=== PATIENT | female | born 1990 | race Caucasian/White ===

== ENCOUNTER → 2017-03-08 | Outpatient (CLI) | payer BC | LOC: MW.CHOBGYN 11:17 | PROVIDERS: ATTEND Advanced Practice Midwife | DX: Z01.419 Encounter for gynecological examination (general) (routine) without abnormal findings (principal) | CPT/HCPCS: 36415; 84439; 84443; G0145 ==

== ENCOUNTER → 2017-03-15 | Outpatient (CLI) | payer BC ==
--- NOTE | 2017-03-16 08:47 | US ---
EXAMINATION: Thyroid ultrasound HISTORY: Goiter COMPARISON: None TECHNIQUE: Grayscale and color Doppler images obtained of the thyroid gland FINDINGS: The right thyroid lobe measures 3.8 x 1.2 x 1.2 cm and the left thyroid lobe measures 4.3 x 1.3 x 1.2 cm. The isthmus measures 2 mm. There are several small isoechoic to hypoechoic nodules n oted bilaterally measuring up to 6 mm. Several appear to have echogenic foci with, tail artifact con sistent with colloid nodules. No overtly suspicious nodule identified. Normal color Doppler flow beatriz aterally. IMPRESSION: 1. Several tiny nodules noted bilaterally. Follow-up in one year may be beneficial.
== END ==
LOC: MW.US 13:57
PROVIDERS: ATTEND Advanced Practice Midwife
DX: E01.0 Iodine-deficiency related diffuse (endemic) goiter (principal)
CPT/HCPCS: 76536-26; 76536-50

== ENCOUNTER 2019-01-05 05:43 | Emergency (ER) | payer BC ==
[2019-01-05] MEDS ORDERED: Ondansetron 4 MG/2 ML SDV ONE ×2 (06:00→06:01)
[2019-01-05] MEDS ORDERED: Sodium Chloride 0.9% 1,000 ML IV ONE (06:00)
[2019-01-05] MEDS ORDERED: Sodium Chloride 0.9% 10 ML Syringe FLUSH PRN (06:00)
[2019-01-05] MEDS ORDERED: Ondansetron 4 MG/2 ML SDV IVPUSH ONE (06:00)
[2019-01-05] MEDS ORDERED: Sodium Chloride 0.9% 2.5 ML Syringe FLUSH PRN (06:00)
[2019-01-05] MEDS ORDERED: Famotidine 20 MG/2 ML SDV IVPUSH ONE (06:00)
[2019-01-05] MEDS ORDERED: Famotidine 20 MG/2 ML SDV ONE (06:02)
--- NOTE | 2019-01-05 06:07 | EDM.PDOC ---
<Yasemin Correia - Last Filed: 01/05/19 06:37> ED HPI GENERAL MEDICAL PROBLEM - General Chief Complaint: Gastrointestinal Problem Stated Complaint: VOMITING, 7 WEEKS PREG Time Seen by Provider: 01/05/19 05:48 - History of Present Illness INITIAL COMMENTS - FREE TEXT/NARRATIVE: HISTORY AND PHYSICAL: History of present illness: The patient is a 28-year-old female who is a 6 para 2031, with a history of 2 live births 2 voluntary interruptions of pregnancies and one spontaneous miscarriage with a last menstrual period of November 16, and an estimated gestational age of 7 weeks one day, who is scheduled to start care with Diana Bullard our nurse 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 The patient tells me she has a history of IBS with constipation and she did not eat any new foods or have any exotic travel and she attributed her symptoms for the last 1 week due to the but she was able to take sips of fluids and small bites of food in between the nausea and vomiting. Intractable vomiting started over the last 24 hours, and the diarrhea in the last 12 hours with decreased urine output. She has not had documented fever but she has felt very sweaty and clammy. She has no burning and pain with urination and no flank pain. The patient says she has no upper GI history and no abdominal surgical history. The patient says that she had been taking Zofran over the last week but it made her constipated and the diarrhea is new for her. Stool is not black or bloody. The patient also complains of diffuse abdominal cramping that she says started with the diarrhea but she has had no vaginal bleeding. According to the patient she has not started her care and has not had an ultrasound to confirm the but she is sure of her last menstrual period and she has very regular periods. Please note for the patient's IBS she has not currently seeing a tube skiver nor is she taking any medications currently for that process Review of systems: As per history of present illness and below otherwise all systems reviewed and negative. Past medical history: As per history of present illness and as reviewed below otherwise noncontributory. Surgical history: As per history of present illness and as reviewed below otherwise noncontributory. Social history: No reported history of drug or alcohol abuse. Family history: As per history of present illness and as reviewed below otherwise noncontributory. Physical exam: General: Well-developed well-nourished thin female who is having dry heaves in the ED. Vital signs are noted by me. HEENT: Atraumatic, normocephalic, negative for conjunctival pallor or scleral icterus, mucous membranes dry, throat clear, neck supple, nontender, trachea midline. Lungs: Clear to auscultation, breath sounds equal bilaterally, chest nontender. Heart: S1S2, regular rate and rhythm no overt murmurs Abdomen: Soft, nondistended, nontender. No sounds are hypoactive on my evaluation and there is no rebound or guarding on palpation. Negative for masses or hepatosplenomegaly. Negative for costovertebral tenderness. Pelvis: Stable nontender. Genitourinary: Deferred. Rectal: Deferred. Extremities: Atraumatic, negative for cords or calf pain. Neurovascular unremarkable. Full range of motion without defects or deficits Neuro: Awake, alert, oriented. Cranial nerves II through XII unremarkable. Cerebellum unremarkable. Motor and sensory unremarkable throughout. Exam nonfocal. Diagnostics: CBC CMP lipase stool for culture if patient produces a sample, serum quantitative hCG, pelvic ultrasound Therapeutics: IV fluids Zofran Pepcid GI cocktail 0700: Case is endorsed to Dr. Balderas to follow-up testing results and disposition the patient. Impression: Hyperemesis gravidarum with gastroenteritis/diarrhea Definitive disposition and diagnosis as appropriate pending reevaluation and review of above. Abdomen Pain Score (Numeric/FACES): 5 - Related Data Allergies Allergy/AdvReac Type Severity Reaction Status Date / Time No Known Allergies Allergy Verified 01/05/19 05:54 Home Meds: Home Meds Vit No.130/Iron/FA [ Vitamins] 1 tab PO DAILY 10/24/14 [History ] Ondansetron HCl [Zofran] 4 mg PO Q4HR #12 tablet 01/05/19 [Rx] Ondansetron [Zofran] 4 mg PO ASDIRECTED 01/05/19 [History] Past Medical History - Past Health History Medical/Surgical History: Denies Medical/Surgical History Other Respiratory History: Current sinus infection and on Zithromax Other Musculoskeletal History: ankle fracture - Past Surgical History Other Musculoskeletal Surgeries/Procedures:: torn meniscus on knee ED ROS GENERAL - Review of Systems Review Of Systems: ROS reveals no pertinent complaints other than HPI. ED EXAM, GENERAL - Physical Exam Exam: See Below (See dictation) Course - Vital Signs Last Recorded V/S: Last Vital Signs Temp 97 F 01/05/19 05:55 Pulse 78 01/05/19 09:17 Resp 14 01/05/19 09:17 BP 120/59 L 01/05/19 09:17 Pulse Ox 97 01/05/19 09:17 - Orders/Labs/Meds Orders: Active Orders 24 hr Category Date Time Status CULTURE URINE [RM] Stat Lab 01/05/19 07:34 Received Saline Lock Insert [OM.PC] Stat Oth 01/05/19 05:59 Ordered Labs: Laboratory Tests 01/05/19 01/05/19 01/05/19 Range/Units 06:08 06:08 06:08 WBC 14.14 H (4.0-11.0) K/uL RBC 4.34 (4.30-5.90) M/uL Hgb 14.0 (12.0-16.0) g/dL Hct 39.5 (36.0-46.0) % MCV 91.0 (80.0-98.0) fL MCH 32.3 H (27.0-32.0) pg MCHC 35.4 (31.0-37.0) g/dL RDW Std Deviation 41.9 (28.0-62.0) fl RDW Coeff of Avelina 12 (11.0-15.0) % Plt Count 312 (150-400) K/uL MPV 9.00 (7.40-12.00) fL Neut % (Auto) 83.8 H (48.0-80.0) % Lymph % (Auto) 10.0 L (16.0-40.0) % [place] % (Auto) 5.7 (0.0-15.0) % Eos % (Auto) 0.4 (0.0-7.0) % Baso % (Auto) 0.1 (0.0-1.5) % Neut # (Auto) 11.9 H (1.4-5.7) K/uL Lymph # (Auto) 1.4 (0.6-2.4) K/uL [place] # (Auto) 0.8 (0.0-0.8) K/uL Eos # (Auto) 0.1 (0.0-0.7) K/uL Baso # (Auto) 0.0 (0.0-0.1) K/uL Nucleated RBC % 0.0 /100WBC Nucleated RBCs # 0 K/uL Sodium 138 (136-145) mmol/L Potassium 3.2 L (3.5-5.1) mmol/L Chloride 102 (98-107) mmol/L Carbon Dioxide 21.4 (21.0-32.0) mmol/L BUN 9 (7.0-18.0) mg/dL Creatinine 0.8 (0.6-1.0) mg/dL Est Cr Clr Drug Dosing 98.88 mL/min Estimated GFR (MDRD) > 60.0 ml/min Glucose 139 H (74-106) mg/dL Calcium 10.0 (8.5-10.1) mg/dL Total Bilirubin 0.3 (0.2-1.0) mg/dL AST 19 (15-37) IU/L ALT 23 (14-63) IU/L Alkaline Phosphatase 44 L (46-116) U/L Total Protein 7.3 (6.4-8.2) g/dL Albumin 4.1 (3.4-5.0) g/dL Globulin 3.2 (2.6-4.0) g/dL Albumin/Globulin Ratio 1.3 (0.9-1.6) Lipase 159 (73-393) U/L HCG, Quant 38376.0 mIU/mL Urine Color Urine Appearance Urine pH (5.0-8.0) Ur Specific Crystal (1.001-1.035) Urine Protein (NEGATIVE) mg/dL Urine Glucose (UA) (NEGATIVE) mg/dL Urine Ketones (NEGATIVE) mg/dL Urine Occult Blood (NEGATIVE) Urine Nitrite (NEGATIVE) Urine Bilirubin (NEGATIVE) Urine Urobilinogen (<2.0) EU/dL Ur Leukocyte Esterase (NEGATIVE) Urine RBC (0-2/HPF) Urine WBC (0-5/HPF) Ur Epithelial Cells (NONE-FEW) Urine Bacteria (NEGATIVE) 01/05/19 Range/Units 07:34 WBC (4.0-11.0) K/uL RBC (4.30-5.90) M/uL Hgb (12.0-16.0) g/dL Hct (36.0-46.0) % MCV (80.0-98.0) fL MCH (27.0-32.0) pg MCHC (31.0-37.0) g/dL RDW Std Deviation (28.0-62.0) fl RDW Coeff of Avelina (11.0-15.0) % Plt Count (150-400) K/uL MPV (7.40-12.00) fL Neut % (Auto) (48.0-80.0) % Lymph % (Auto) (16.0-40.0) % [place] % (Auto) (0.0-15.0) % Eos % (Auto) (0.0-7.0) % Baso % (Auto) (0.0-1.5) % Neut # (Auto) (1.4-5.7) K/uL Lymph # (Auto) (0.6-2.4) K/uL [place] # (Auto) (0.0-0.8) K/uL Eos # (Auto) (0.0-0.7) K/uL Baso # (Auto) (0.0-0.1) K/uL Nucleated RBC % /100WBC Nucleated RBCs # K/uL Sodium (136-145) mmol/L Potassium (3.5-5.1) mmol/L Chloride (98-107) mmol/L Carbon Dioxide (21.0-32.0) mmol/L BUN (7.0-18.0) mg/dL Creatinine (0.6-1.0) mg/dL Est Cr Clr Drug Dosing mL/min Estimated GFR (MDRD) ml/min Glucose (74-106) mg/dL Calcium (8.5-10.1) mg/dL Total Bilirubin (0.2-1.0) mg/dL AST (15-37) IU/L ALT (14-63) IU/L Alkaline Phosphatase (46-116) U/L Total Protein (6.4-8.2) g/dL Albumin (3.4-5.0) g/dL Globulin (2.6-4.0) g/dL Albumin/Globulin Ratio (0.9-1.6) Lipase (73-393) U/L HCG, Quant mIU/mL Urine Color YELLOW Urine Appearance CLEAR Urine pH 8.5 H (5.0-8.0) Ur Specific Crystal 1.020 (1.001-1.035) Urine Protein NEGATIVE (NEGATIVE) mg/dL Urine Glucose (UA) NEGATIVE (NEGATIVE) mg/dL Urine Ketones 15 H (NEGATIVE) mg/dL Urine Occult Blood NEGATIVE (NEGATIVE) Urine Nitrite NEGATIVE (NEGATIVE) Urine Bilirubin NEGATIVE (NEGATIVE) Urine Urobilinogen 0.2 (<2.0) EU/dL Ur Leukocyte Esterase SMALL H (NEGATIVE) Urine RBC 1-2 (0-2/HPF) Urine WBC 2-3 (0-5/HPF) Ur Epithelial Cells FEW (NONE-FEW) Urine Bacteria 1+ H (NEGATIVE) Meds: Medications Discontinued Medications Generic Name Dose Route Start Last Admin Trade Name Freq PRN Reason Stop Dose Admin Al Hydroxide/Mg Hydroxide 15 0 ml 01/05/19 06:35 01/05/19 06:42 ml/ Metoclopramide HCl 5 mg/ PO 01/05/19 06:36 1 each Lidocaine HCl 5 ml ONETIME ONE Administration Famotidine 20 mg 01/05/19 06:00 01/05/19 06:13 Pepcid IVPUSH 01/05/19 06:01 20 mg ONETIME ONE Administration Famotidine Confirm 01/05/19 06:02 01/05/19 06:15 Pepcid Administered 01/05/19 06:03 Not Given Dose 20 mg .ROUTE .STK-MED ONE Sodium Chloride 1,000 mls @ 999 mls/hr 01/05/19 06:00 01/05/19 06:13 Normal Saline IV 01/05/19 07:00 999 mls/hr STAT ONE Administration Morphine Sulfate 2 mg 01/05/19 08:33 01/05/19 08:40 Morphine IVPUSH 01/05/19 08:34 2 mg ONETIME ONE Administration Ondansetron HCl 8 mg 01/05/19 06:00 01/05/19 06:13 Zofran IVPUSH 01/05/19 06:01 8 mg ONETIME ONE Administration Ondansetron HCl Confirm 01/05/19 06:00 01/05/19 06:15 Zofran Administered 01/05/19 06:01 Not Given Dose 4 mg .ROUTE .STK-MED ONE Ondansetron HCl Confirm 01/05/19 06:01 01/05/19 06:15 Zofran Administered 01/05/19 06:02 Not Given Dose 4 mg .ROUTE .STK-MED ONE Promethazine HCl 25 mg 01/05/19 08:07 01/05/19 08:18 Phenergan IM 01/05/19 08:08 25 mg ONETIME ONE Administration Sodium Chloride 10 ml 01/05/19 06:00 01/05/19 08:20 Saline Flush FLUSH 10 ml ASDIRECTED PRN Administration Keep Vein Open Sodium Chloride 2.5 ml 01/05/19 06:00 01/05/19 08:20 Saline Flush FLUSH 2.5 ml ASDIRECTED PRN Administration Keep Vein Open Departure - Departure Disposition: Home, Self-Care 01 Condition: Good Clinical Impression: Diarrhea, Hyperemesis gravidarum, Vomiting - Discharge Information Prescriptions: Ondansetron HCl [Zofran] 4 mg PO Q4HR #12 tablet Instructions: Diarrhea, Adult, Hyperemesis Gravidarum, Nausea and Vomiting, Adult Referrals: PCP,None [Primary Care Provider] - Forms: ED Department Discharge Additional Instructions: The following information is given to patients seen in the emergency department who are being discharged to home. This information is to outline your options for follow-up care. We provide all patients seen in our emergency department with a follow-up referral. The need for follow-up, as well as the timing and circumstances, are variable depending upon the specifics of your emergency department visit. If you don't have a primary care physician on staff, we will provide you with a referral. We always advise you to contact your personal physician following an emergency department visit to inform them of the circumstance of the visit and for follow-up with them and/or the need for any referrals to a consulting specialist. The emergency department will also refer you to a specialist when appropriate. This referral assures that you have the opportunity for follow-up care with a specialist. All of these measure are taken in an effort to provide you with optimal care, which includes your follow-up. Under all circumstances we always encourage you to contact your private physician who remains a resource for coordinating your care. When calling for follow-up care, please make the office aware that this follow-up is from your recent emergency room visit. If for any reason you are refused follow-up, please contact the [facility] Emergency Department at and asked to speak to the emergency department charge nurse. Take meds as directed, follow up with your primary care physician, return to ER if symptoms worsen or change. [facility] Primary Care - Women's [facility] [address] [place] [id number] <Charlotte Balderas - Last Filed: 01/05/19 11:17> ED HPI GENERAL MEDICAL PROBLEM - History of Present Illness INITIAL COMMENTS - FREE TEXT/NARRATIVE: She was signed out to me Dr. 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 Ultrasound showed:Early single living intrauterine is identified. 1 cm crown rump length is noted corresponds 7 weeks +0 days and estimated date of confinement of 08/24/2019. No abnormal fluid collections are noted. Yolk sac is noted. Small amount of free fluid in the cul-de-sac is noted. Probable corpus luteum within the left ovary noted. Recommend follow up ultrasound as progresses. Labs were unremarkable she had a slightly low potassium and slightly elevated white count likely due to stress demargination and . She has been discharged stable instructed to take Pepcid twice a day for the next 2 weeks and follow up with OB. Departure - Departure Time of Disposition: 08:58 - Discharge Information *PRESCRIPTION DRUG MONITORING PROGRAM REVIEWED*: No *COPY OF PRESCRIPTION DRUG MONITORING REPORT IN PATIENT AMARILIS: No
[2019-01-05] MEDS ORDERED: Alum Hydrox/Mag Hydrox/Simeth 15 ML, Metoclopramide 5 MG, Lidocaine 2% 5 ML PO ONE ×3 (06:35)
[2019-01-05 06:58] LABS: CHLORIDE,CL 102 mmol/L (98-107); SODIUM,NA 138 mmol/L (136-145)
[2019-01-05] MEDS ORDERED: Promethazine 25 MG/ML SDV IM ONE (08:07)
--- NOTE | 2019-01-05 08:26 | US ---
INDICATION: Nausea vomiting, abdominal pain, early . FINDINGS: There is an early single living intrauterine identified. The average crown-rump length is 1 cm corresponds 7 weeks +0 days and estimated date of confinement of 08/24/2019. Cardiac activity is identified with a heart rate of 126 beats per minute. No abnormal fluid collections are seen. Yolk sac is noted. The right ovary is within normal limits. Small complex area within the left ovary is identified which is probably related to corpus luteum. Color Doppler blood flow to both ovaries is noted. Small amount of free fluid in the cul-de-sac is noted. IMPRESSION: Early single living intrauterine is identified. 1 cm crown rump length is noted corresponds 7 weeks +0 days and estimated date of confinement of 08/24/2019. No abnormal fluid collections are noted. Yolk sac is noted. Small amount of free fluid in the cul-de-sac is noted. Probable corpus luteum within the left ovary noted. Recommend follow up ultrasound as progresses. Dictated by Delon Pisano MD @ 01/05/2019 8:24:38 AM Dictated by: Delon Pisano MD @ 01/05/2019 08:24:44 (Electronically Signed)
[2019-01-05] MEDS ORDERED: Morphine 2 MG/ML Syringe IVPUSH ONE (08:33)
[2019-01-05 09:18] VITALS: BP 120/59
== END 2019-01-05 09:15 | disposition home or self-care (01) ==
LOC: MW.ED 05:43
DX: O21.0 Mild hyperemesis gravidarum (principal); O99.611 Diseases of the digestive system complicating pregnancy, first trimester; K52.9 Noninfective gastroenteritis and colitis, unspecified; Z79.899 Other long term (current) drug therapy; Z3A.01 Less than 8 weeks gestation of pregnancy
CPT/HCPCS: 36415; 76801; 80053; 81001; 83690; 84702; 85025; 87086; A9270; J2270; J2405; J2550; J3490; J7040; 99283

== ENCOUNTER 2019-08-11 07:46 | Inpatient (IN) | payer SELFPAY ==
[2019-08-11] MEDS ORDERED: Sodium Chloride 0.9% 10 ML Syringe FLUSH PRN (07:52)
[2019-08-11] MEDS ORDERED: Tranexamic Acid 1,000 MG in Sodium Chloride 0.9% 100 ML IV PRN (07:52)
[2019-08-11] MEDS ORDERED: Sodium Chloride 0.9% 10 ML SDV IV PRN (07:52)
[2019-08-11] MEDS ORDERED: Water For Irrigation,Sterile 1,000 ML Container IRR PRN (07:52)
[2019-08-11] MEDS ORDERED: Ondansetron 4 MG/2 ML SDV IVPUSH PRN (07:52)
[2019-08-11] MEDS ORDERED: Lidocaine 1% 50 ML MDV INJECT PRN (07:52)
[2019-08-11] MEDS ORDERED: Sodium Chloride 0.9% 2.5 ML Syringe FLUSH PRN (07:52)
[2019-08-11] MEDS ORDERED: Methylergonovine 0.2 MG/1 ML Amp IM PRN (07:52)
[2019-08-11] MEDS ORDERED: Misoprostol 200 MCG Tab PO PRN (07:52)
[2019-08-11] MEDS ORDERED: Carboprost Tromethamine 250 MCG/1 ML Amp IM PRN (07:52)
[2019-08-11] MEDS ORDERED: Nalbuphine 10 MG/1 ML Vial IVPUSH PRN (07:52)
--- NOTE | 2019-08-11 07:58 | PCM.LDHP ---
L&D History of Present Illness - General Date of Service: 08/11/19 Admit Problem/Dx: Patient Status Order with Admit Dx/Problem 08/11/19 07:52 Patient Status [ADT] Routine Admission Diagnosis/Problem Admission Diagnosis/Problem 08/11/19 07:55 29yo EDC 08/23/2019 38 2/7wks. AB+, RI, GBS neg. Active labor. Source of Information: Patient History Limitations: Reports: No Limitations - History of Present Illness Improves with: Reports: None Worsens with: Reports: None Associated Symptoms: Reports: N - Related Data Allergies/Adverse Reactions: Allergies Allergy/AdvReac Type Severity Reaction Status Date / Time No Known Allergies Allergy Verified 01/05/19 05:54 Home Medications: Home Meds Vit No.130/Iron/FA [ Vitamins] 1 tab PO DAILY 10/24/14 [History ] Ondansetron HCl [Zofran] 4 mg PO Q4HR #12 tablet 01/05/19 [Rx] Ondansetron [Zofran] 4 mg PO ASDIRECTED 01/05/19 [History] Past Medical History - Past Health History Medical/Surgical History: Denies Medical/Surgical History HEENT History: Reports: None Cardiovascular History: Reports: None Respiratory History: Reports: None Other Respiratory History: Current sinus infection and on Zithromax Gastrointestinal History: Reports: None Genitourinary History: Reports: None BASE PLY HAND History: Reports: , Spontaneous Other Musculoskeletal History: ankle fracture Neurological History: Reports: None Psychiatric History: Reports: Anxiety, Depression Endocrine/Metabolic History: Reports: None Hematologic History: Reports: None Dermatologic History: Reports: None - Infectious Disease History Infectious Disease History: Reports: None - Past Surgical History Other Musculoskeletal Surgeries/Procedures:: torn meniscus on knee Social & Family History - Family History Family Medical History: Noncontributory - Caffeine Use Caffeine Use: Reports: None H&P Review of Systems - Review of Systems: Review Of Systems: See Below General: Reports: No Symptoms HEENT: Reports: No Symptoms Pulmonary: Reports: No Symptoms Cardiovascular: Reports: No Symptoms Gastrointestinal: Reports: No Symptoms Genitourinary: Reports: No Symptoms Musculoskeletal: Reports: No Symptoms Skin: Reports: No Symptoms Psychiatric: Reports: No Symptoms Neurological: Reports: No Symptoms Hematologic/Lymphatic: Reports: No Symptoms Immunologic: Reports: No Symptoms L&D Exam - Exam Exam: See Below - OB Specific Contraction Intensity: Strong Movement: Active Heart Tones: Present Heart Tones per Min: 135 Heart Rate (FHR) Variability: Moderate (6-25 bmp) Presentation: Vertex - Diallo Score Diallo Score Cervix Position: Anterior Diallo Score Consistency: Soft Diallo Score Effacement: >80% Diallo Score Dilation: > 5 cm Diallo Score Infant's Station: -1 ,0 Diallo Score Total: 12 - Exam General: Alert, Oriented, Cooperative HEENT: Hearing Intact Lungs: Clear to Auscultation, Normal Respiratory Effort Cardiovascular: Regular Rate, Regular Rhythm, Normal S1, Normal S2 GI/Abdominal Exam: Soft, Non-Tender Rectal Exam: Deferred Genitourinary: Normal external exam, Normal speculum exam, Cervical dilitation Back Exam: Normal Inspection, Full Range of Motion Extremities: Normal Inspection, Normal Range of Motion, Non-Tender, No Pedal Edema Skin: Warm, Dry, Intact Neurological: Cranial Nerves Intact, Strength Equal Bilateral, Normal Gait, Normal Speech, Normal Tone, Sensation Intact Psychiatric: Alert, Normal Affect, Normal Mood - Problem List (1) Supervision of normal IUP (intrauterine ) in multigravida SNOMED Code(s): 799765353, 546274615, 224149737 ICD Code: Z34.80 - ENCOUNTER FOR SUPRVSN OF NORMAL , UNSP TRIMESTER Status: Acute Priority: High Current Visit: Yes Qualifiers: Trimester: third trimester Qualified Code(s): Z34.83 - Encounter for supervision of other normal , third trimester Problem List Initiated/Reviewed/Updated: Yes Orders Last 24hrs: Active Orders 24 hr Category Date Time Status Patient Status [ADT] Routine ADT 08/11/19 07:52 Active Heart Tones [RC] CONTINUOUS Care 08/11/19 07:52 Active Non Stress Test [RC] PER UNIT ROUTINE Care 08/11/19 07:52 Active May Shower [RC] ASDIRECTED Care 08/11/19 07:52 Active Notify Provider [RC] PRN Care 08/11/19 07:52 Active Peripheral IV Care [RC] . DIRECTED Care 08/11/19 07:52 Active Up ad Gabrielle [RC] ASDIRECTED Care 08/11/19 07:52 Active Vaginal Exam [RC] PRN Care 08/11/19 07:52 Active Vital Signs [RC] PER UNIT ROUTINE Care 08/11/19 07:52 Active CBC W/O DIFF,HEMOGRAM [HEME] Routine Lab 08/11/19 07:52 Ordered TYPE AND SCREEN [BBK] Routine Lab 08/11/19 07:52 Ordered Carboprost Tromethamine [Hemabate DS] Med 08/11/19 07:52 Ordered 250 mcg IM ASDIRECTED PRN Lactated Ringers @ 150 MLS/HR(1000ml) Med 08/11/19 08:00 Ordered Lactated Ringers [Ringers, Lactated] 1,000 ml IV ASDIRECTED Lidocaine 1% [Xylocaine 1%] Med 08/11/19 07:52 Ordered 50 ml INJECT ONETIME PRN Methylergonovine [Methergine] Med 08/11/19 07:52 Ordered 0.2 mg IM ASDIRECTED PRN Nalbuphine [Nubain] Med 08/11/19 07:52 Ordered 10 mg IVPUSH Q1H PRN Ondansetron [Zofran] Med 08/11/19 07:52 Ordered 4 mg IVPUSH Q6H PRN Oxytocin/0.9 % Sodium Chloride [Oxytocin 30 Unit/500 ML Med 08/11/19 08:00 Ordered -NS] 30 unit in 500 ml IV TITRATE Sodium Chloride 0.9% [Normal Saline] Med 08/11/19 07:52 Ordered 10 ml IV ASDIRECTED PRN Sodium Chloride 0.9% [Saline Flush] Med 08/11/19 07:52 Ordered 10 ml FLUSH ASDIRECTED PRN Sodium Chloride 0.9% [Saline Flush] Med 08/11/19 07:52 Ordered 2.5 ml FLUSH ASDIRECTED PRN Tranexamic Acid [Cyklokapron] 1,000 mg Med 08/11/19 07:52 Ordered Sodium Chloride 0.9% [Normal Saline] 100 ml IV ONETIME Water For Irrigation,Sterile [Sterile Water for Med 08/11/19 07:52 Ordered Irrigation] 1,000 ml IRR ASDIRECTED PRN miSOPROStol [Cytotec] Med 08/11/19 07:52 Ordered 200 mcg PO ONETIME PRN Scalp Electrode [WOMSER] Per Unit Routine Oth 08/11/19 07:52 Ordered Peripheral IV Insertion Adult [OM.PC] Routine Oth 08/11/19 07:52 Ordered Resuscitation Status Routine Resus Stat 08/11/19 07:52 Ordered Medication Orders Carboprost Tromethamine (Hemabate Ds) 250 mcg IM ASDIRECTED PRN PRN Reason: Post Hemorrhage Lactated Ringer's (Ringers, Lactated) 1,000 mls @ 150 mls/hr IV ASDIRECTED SONAL Oxytocin/Sodium Chloride (Oxytocin 30 Unit/500 Ml-Ns) 30 unit in 500 mls @ 999 mls/hr IV TITRATE SONAL Tranexamic Acid 1,000 mg/ (Sodium Chloride) 110 mls @ 660 mls/hr IV ONETIME PRN PRN Reason: Bleeding Lidocaine HCl (Xylocaine 1%) 50 ml INJECT ONETIME PRN PRN Reason: Laceration repair Methylergonovine Maleate (Methergine) 0.2 mg IM ASDIRECTED PRN PRN Reason: Post Hemorrhage Misoprostol (Cytotec) 200 mcg PO ONETIME PRN PRN Reason: Post Hemorrhage Nalbuphine HCl (Nubain) 10 mg IVPUSH Q1H PRN PRN Reason: Pain (severe 7-10) Ondansetron HCl (Zofran) 4 mg IVPUSH Q6H PRN PRN Reason: Nausea/Vomiting Sodium Chloride (Saline Flush) 10 ml FLUSH ASDIRECTED PRN PRN Reason: Keep Vein Open Sodium Chloride (Saline Flush) 2.5 ml FLUSH ASDIRECTED PRN PRN Reason: Keep Vein Open Sodium Chloride (Normal Saline) 10 ml IV ASDIRECTED PRN PRN Reason: IV Use Sterile Water (Sterile Water For Irrigation) 1,000 ml IRR ASDIRECTED PRN PRN Reason: delivery Assessment/Plan Comment:: Labor A: 29yo EDC 08/23/2019 38 2/7wks. AB+, RI, GBS neg. Active labor. P: Admit, epidural now, anticipate Dr Liu updated
[2019-08-11] MEDS ORDERED: Oxytocin/0.9 % Sodium Chloride 30 UNIT/500 ML BAG IV SCH (08:00)
[2019-08-11] MEDS: Lactated Ringers 1,000 ML IV SCH ×2 (08:10→09:45)
[2019-08-11] MEDS ORDERED: fentaNYL 100 MCG/2 ML SDV ONE (08:35)
--- NOTE | 2019-08-11 08:55 | PCM.PREANE ---
Preanesthetic Assessment - Anesthesia/Transfusion/Family Hx Anesthesia History: Prior Anesthesia Without Reaction Other Type of Anesthesia Reaction Comment: Spinal IYER with blood patch with last delivery Family History of Anesthesia Reaction: No Transfusion History: No Prior Transfusion(s) - Review of Systems General: No Symptoms Pulmonary: No Symptoms Cardiovascular: No Symptoms Gastrointestinal: No Symptoms Neurological: No Symptoms Other: Reports: None - Physical Assessment Height: 5 ft 6 in Weight: 75.75 kg ASA Class: 2 Mental Status: Alert & Oriented x3 Airway Class: Mallampati = 2 Dentition: Reports: Normal Dentition Thyro-Mental Finger Breadths: 3 Mouth Opening Finger Breadths: 3 ROM/Head Extension: Full Lungs: Clear to Auscultation, Normal Respiratory Effort Cardiovascular: Regular Rate, Regular Rhythm - Lab Values: Laboratory Last Values WBC 10.69 K/uL (4.0-11.0) 08/11/19 08:13 RBC 3.85 M/uL (4.30-5.90) L 08/11/19 08:13 Hgb 11.2 g/dL (12.0-16.0) L 08/11/19 08:13 Hct 34.2 % (36.0-46.0) L 08/11/19 08:13 MCV 88.8 fL (80.0-98.0) 08/11/19 08:13 MCH 29.1 pg (27.0-32.0) 08/11/19 08:13 MCHC 32.7 g/dL (31.0-37.0) 08/11/19 08:13 RDW Std Deviation 40.0 fl (28.0-62.0) 08/11/19 08:13 RDW Coeff of Avelina 13 % (11.0-15.0) 08/11/19 08:13 Plt Count 296 K/uL (150-400) 08/11/19 08:13 MPV 9.60 fL (7.40-12.00) 08/11/19 08:13 Nucleated RBC % 0.0 /100WBC 08/11/19 08:13 Nucleated RBCs # 0 K/uL 08/11/19 08:13 - Allergies Allergies/Adverse Reactions: Allergies Allergy/AdvReac Type Severity Reaction Status Date / Time No Known Allergies Allergy Verified 01/05/19 05:54 - Acknowledgements Anesthesia Type Planned: Spinal Pt an Appropriate Candidate for the Planned Anesthesia: Yes Alternatives and Risks of Anesthesia Discussed w Pt/Guardian: Yes Pt/Guardian Understands and Agrees with Anesthesia Plan: Yes PreAnesthesia Questionnaire - Past Health History Medical/Surgical History: Denies Medical/Surgical History HEENT History: Reports: None Cardiovascular History: Reports: None Respiratory History: Reports: None Other Respiratory History: Current sinus infection and on Zithromax Gastrointestinal History: Reports: None Genitourinary History: Reports: None SPECIAL OFFICER History: Reports: , Spontaneous : 3 Para: 2 LMP (Approximate): Other Musculoskeletal History: ankle fracture Neurological History: Reports: None Psychiatric History: Reports: Anxiety, Depression Endocrine/Metabolic History: Reports: None Hematologic History: Reports: None Immunologic History: Reports: None Oncologic (Cancer) History: Reports: None Dermatologic History: Reports: None - Infectious Disease History Infectious Disease History: Reports: None - Past Surgical History Other Musculoskeletal Surgeries/Procedures:: torn meniscus on knee - HOME MEDS Home Medications: Home Meds Vit No.130/Iron/FA [ Vitamins] 1 tab PO DAILY 10/24/14 [History ] Ondansetron HCl [Zofran] 4 mg PO Q4HR #12 tablet 01/05/19 [Rx] Ondansetron [Zofran] 4 mg PO ASDIRECTED 01/05/19 [History] - CURRENT (IN HOUSE) MEDS Current Meds: Current Medications Carboprost Tromethamine (Hemabate Ds) 250 mcg IM ASDIRECTED PRN PRN Reason: Post Hemorrhage Lactated Ringer's (Ringers, Lactated) 1,000 mls @ 150 mls/hr IV ASDIRECTED SONAL Oxytocin/Sodium Chloride (Oxytocin 30 Unit/500 Ml-Ns) 30 unit in 500 mls @ 999 mls/hr IV TITRATE SONAL Tranexamic Acid 1,000 mg/ (Sodium Chloride) 110 mls @ 660 mls/hr IV ONETIME PRN PRN Reason: Bleeding Lidocaine HCl (Xylocaine 1%) 50 ml INJECT ONETIME PRN PRN Reason: Laceration repair Methylergonovine Maleate (Methergine) 0.2 mg IM ASDIRECTED PRN PRN Reason: Post Hemorrhage Misoprostol (Cytotec) 200 mcg PO ONETIME PRN PRN Reason: Post Hemorrhage Nalbuphine HCl (Nubain) 10 mg IVPUSH Q1H PRN PRN Reason: Pain (severe 7-10) Ondansetron HCl (Zofran) 4 mg IVPUSH Q6H PRN PRN Reason: Nausea/Vomiting Sodium Chloride (Saline Flush) 10 ml FLUSH ASDIRECTED PRN PRN Reason: Keep Vein Open Sodium Chloride (Saline Flush) 2.5 ml FLUSH ASDIRECTED PRN PRN Reason: Keep Vein Open Sodium Chloride (Normal Saline) 10 ml IV ASDIRECTED PRN PRN Reason: IV Use Sterile Water (Sterile Water For Irrigation) 1,000 ml IRR ASDIRECTED PRN PRN Reason: delivery Discontinued Medications Fentanyl (Sublimaze) Confirm Administered Dose 100 [facility]cg [facility] Stop: 08/11/19 08:36
[2019-08-11] MEDS ORDERED: oxyCODONE 5 MG Tab PO PRN (10:22)
[2019-08-11] MEDS ORDERED: Lanolin 100% Cream 7 GM Tube TOP PRN (10:22)
[2019-08-11] MEDS ORDERED: Ibuprofen 400 MG Tab PO PRN (10:22)
[2019-08-11] MEDS ORDERED: Bisacodyl 10 MG Supp RECTAL PRN (10:22)
[2019-08-11] MEDS ORDERED: Ibuprofen 800 MG Tab PO PRN (10:22)
[2019-08-11] MEDS ORDERED: Docusate Sodium 100 MG Cap PO PRN (10:22)
[2019-08-11] MEDS ORDERED: Witch Hazel Medicated Pads 40/Jar TOP PRN (10:22)
[2019-08-11] MEDS ORDERED: Acetaminophen 500 MG Tab PO PRN ×2 (10:22)
[2019-08-11] MEDS ORDERED: Benzocaine/Menthol 20%-0.5% Spray 78 GM Cannister TOP PRN (10:22)
--- NOTE | 2019-08-11 13:42 | OR ---
SURGEON: Óscar Liu MD DATE OF PROCEDURE: 08/11/2019 Ms. Tello is 29-year-old. She is para 2-0-0-2. She is term, she is 39 plus weeks. She is followed in our clinic primarily by me. Her GBS status was negative. Her diabetes screen negative. She had no issue prenatally. She is admitted to Labor and Delivery early this morning with active contraction. At the time of admission, she was 6 cm, soon progress to 8 cm. The patient had an intrathecal injection for labor pain and then had an artificial rupture of the membrane by me. The patient was able to accomplish normal spontaneous vaginal delivery of a male fetus, cried immediately. score reported to be 8 and 9. The weight is not available. Placenta delivered spontaneous, complete, and intact without any problem. There was no perineal, labial, or vaginal laceration, and episiotomy was not needed. Estimated blood loss was 300 to 350 mL. heart rate was category 1 through the entire process of labor. BARRERA / OSMAN /[id number]
[2019-08-12 08:14] VITALS: BP 105/67; PULSE 78
--- NOTE | 2019-08-12 08:44 | PCM.PNPP ---
- General Info Date of Service: 08/12/19 Functional Status: Reports: Pain Controlled - Review of Systems General: Reports: No Symptoms HEENT: Reports: No Symptoms Pulmonary: Reports: No Symptoms Cardiovascular: Reports: No Symptoms Gastrointestinal: Reports: No Symptoms Genitourinary: Reports: No Symptoms Musculoskeletal: Reports: No Symptoms Skin: Reports: No Symptoms Neurological: Reports: No Symptoms Psychiatric: Reports: No Symptoms - General Info Date of Service: 08/12/19 - Patient Data Vital Signs - Most Recent: Last Vital Signs Temp 35.9 C 08/12/19 08:13 Pulse 78 08/12/19 08:13 Resp 18 08/12/19 08:13 BP 105/67 08/12/19 08:13 Pulse Ox 100 08/12/19 08:13 Weight - Most Recent: 75.75 kg Lab Results - Last 24 Hours: Laboratory Results - last 24 hr 08/11/19 08/11/19 08/12/19 Range/Units 08:13 08:13 06:05 Hgb 10.1 L (12.0-16.0) g/dL Hct 31.6 L (36.0-46.0) % Blood Type AB POSITIVE Antibody Screen POSITIVE Prewarmed Antibody Srcn NEGATIVE Antibody Identification Anti-Mari Cold Antibody Screen POSITIVE Crossmatch See Detail Med Orders - Current: Current Medications Acetaminophen (Tylenol Extra Strength) 500 mg PO Q4H PRN PRN Reason: Pain Acetaminophen (Tylenol Extra Strength) 1,000 mg PO Q4H PRN PRN Reason: Pain Benzocaine/Menthol (Dermoplast Pain Relief 20%-0.5% [place]) 78 gm TOP ASDIRECTED PRN PRN Reason: Perineal Comfort Measure Last Admin: 08/11/19 12:52 Dose: 1 canister Bisacodyl (Dulcolax) 10 mg RECTAL ONETIME PRN PRN Reason: Constipation Docusate Sodium (Colace) 100 mg PO BID PRN PRN Reason: Constipation Emollient Ointment (Lansinoh Hpa) 0 gm TOP ASDIRECTED PRN PRN Reason: Sore Nipples Ibuprofen (Motrin) 400 mg PO Q4H PRN PRN Reason: Pain Ibuprofen (Motrin) 800 mg PO Q6H PRN PRN Reason: Pain Oxycodone HCl (Oxycodone) 5 mg PO Q2H PRN PRN Reason: Pain Sodium Chloride (Saline Flush) 10 ml FLUSH ASDIRECTED PRN PRN Reason: Keep Vein Open Sodium Chloride (Saline Flush) 2.5 ml FLUSH ASDIRECTED PRN PRN Reason: Keep Vein Open Sodium Chloride (Normal Saline) 10 ml IV ASDIRECTED PRN PRN Reason: IV Use Witch Andressa (Tucks) 1 pad TOP ASDIRECTED PRN PRN Reason: comfort care Last Admin: 08/11/19 12:52 Dose: 1 tub Discontinued Medications Carboprost Tromethamine (Hemabate Ds) 250 mcg IM ASDIRECTED PRN PRN Reason: Post Hemorrhage Fentanyl (Sublimaze) Confirm Administered Dose 100 mcg .ROUTE .STK-MED ONE Stop: 08/11/19 08:36 Lactated Ringer's (Ringers, Lactated) 1,000 mls @ 150 mls/hr IV ASDIRECTED SONAL Last Infusion: 08/11/19 10:10 Dose: 0 mls/hr Oxytocin/Sodium Chloride (Oxytocin 30 Unit/500 Ml-Ns) 30 unit in 500 mls @ 999 mls/hr IV TITRATE [facility] Last Infusion: 08/11/19 10:28 Dose: 500 mls/hr Tranexamic Acid 1,000 mg/ (Sodium Chloride) 110 mls @ 660 mls/hr IV ONETIME PRN PRN Reason: Bleeding Lidocaine HCl (Xylocaine 1%) 50 ml INJECT ONETIME PRN PRN Reason: Laceration repair Methylergonovine Maleate (Methergine) 0.2 mg IM ASDIRECTED PRN PRN Reason: Post Hemorrhage Misoprostol (Cytotec) 200 mcg PO ONETIME PRN PRN Reason: Post Hemorrhage Nalbuphine HCl (Nubain) 10 mg IVPUSH Q1H PRN PRN Reason: Pain (severe 7-10) Ondansetron HCl (Zofran) 4 mg IVPUSH Q6H PRN PRN Reason: Nausea/Vomiting Sterile Water (Sterile Water For Irrigation) 1,000 ml IRR ASDIRECTED PRN PRN Reason: delivery - Interaction Disposition, : in Room with Family Infant Interaction: Holding Infant Infant Feeding: Attempted ; Nursed Fair/Poor Support Person: - Recovery Exam Fundal Tone: Firm Fundal Level: 1 Fingerbreadths Below Umbilicus Fundal Placement: Midline Lochia Amount: Scant Lochia Color: Rubra/Red Perineum Description: Intact, Minimal Bruising/Swelling Episiotomy/Laceration: None Bladder Status: Voiding Urinary Elimination: Voided - Exam General: Alert, Oriented HEENT: Pupils Equal Neck: Supple Lungs: Clear to Auscultation, Normal Respiratory Effort Cardiovascular: Regular Rate, Regular Rhythm GI/Abdominal Exam: Normal Bowel Sounds, Soft, Non-Tender, No Organomegaly, No Distention, No Abnormal Bruit, No Mass, Pelvis Stable Extremities: Normal Inspection, Normal Range of Motion, Non-Tender, No Pedal Edema, Normal Capillary Refill Skin: Warm, Dry, Intact Wound/Incisions: Healing Well Neurological: No New Focal Deficit Psy/Mental Status: Alert, Normal Affect, Normal Mood - Problem List Review Problem List Initiated/Reviewed/Updated: Yes - My Orders Last 24 Hours: My Active Orders 08/11/19 07:52 Peripheral IV Care [RC] . DIRECTED Sodium Chloride 0.9% [Normal Saline] 10 ml IV ASDIRECTED PRN Sodium Chloride 0.9% [Saline Flush] 10 ml FLUSH ASDIRECTED PRN Sodium Chloride 0.9% [Saline Flush] 2.5 ml FLUSH ASDIRECTED PRN Peripheral IV Insertion Adult [OM.PC] Routine Resuscitation Status Routine 08/11/19 08:13 RED BLOOD CELLS LP [BBK] Routine 08/11/19 10:22 Patient Status [ADT] Routine May Shower [RC] ASDIRECTED Up ad Gabrielle [RC] ASDIRECTED Vital Signs [RC] PER UNIT ROUTINE Acetaminophen [Tylenol Extra Strength] 1,000 mg PO Q4H PRN Acetaminophen [Tylenol Extra Strength] 500 mg PO Q4H PRN Benzocaine/Menthol [Dermoplast Pain Relief 20%-0.5% [place]] 78 gm TOP ASDIRECTED PRN Bisacodyl [Dulcolax] 10 mg RECTAL ONETIME PRN Docusate Sodium [Colace] 100 mg PO BID PRN Ibuprofen [Motrin] 400 mg PO Q4H PRN Ibuprofen [Motrin] 800 mg PO Q6H PRN Lanolin [Lansinoh HPA] See Dose Instructions TOP ASDIRECTED PRN Witch Andressa [Tucks] 1 pad TOP ASDIRECTED PRN oxyCODONE 5 mg PO Q2H PRN Assess Lochia [WOMSER] Per Unit Routine Assess Uterine Involution [WOMSER] Per Unit Routine Peripheral IV Discontinue [OM.PC] Routine 08/11/19 Lunch Regular Diet [DIET] - Assessment Assessment:: Status post normal spontaneous vaginal delivery she is doing well and she is going home today - Plan Plan:: Labor A: 29yo EDC 08/23/2019 38 2/7wks. AB+, RI, GBS neg. Active labor. P: Admit, epidural now, anticipate Dr Liu updated
--- NOTE | 2019-08-12 08:46 | PCM.DCSUM1 ---
Discharge Summary - Hospital Course Diagnosis: Stroke: No - Discharge Data Discharge Date: 08/12/19 Discharge Disposition: Home, Self-Care 01 Condition: Good - Referral to Home Health Primary Care Physician: PCP None - Patient Instructions Diet: Usual Diet as Tolerated Activity: As Tolerated Driving: Do Not Drive Showering/Bathing: May Shower Notify Provider of: Fever, Increased Pain - Discharge Plan Home Medications: Home Meds Vit No.130/Iron/FA [ Vitamins] 1 tab PO DAILY 10/24/14 [History ] Ondansetron HCl [Zofran] 4 mg PO Q4HR #12 tablet 01/05/19 [Rx] Ondansetron [Zofran] 4 mg PO ASDIRECTED 01/05/19 [History] Referrals: [facility] [Outside] Óscar Liu MD [Physician] - 09/22/19 3:00 pm - Discharge Summary/Plan Comment DC Time >30 min.: Yes - General Info Date of Service: 08/12/19 Functional Status: Reports: Pain Controlled - Review of Systems General: Reports: No Symptoms HEENT: Reports: No Symptoms Pulmonary: Reports: No Symptoms Cardiovascular: Reports: No Symptoms Gastrointestinal: Reports: No Symptoms Genitourinary: Reports: No Symptoms Musculoskeletal: Reports: No Symptoms Skin: Reports: No Symptoms Neurological: Reports: No Symptoms Psychiatric: Reports: No Symptoms - Patient Data Vitals - Most Recent: Last Vital Signs Temp 35.9 C 08/12/19 08:13 Pulse 78 08/12/19 08:13 Resp 18 08/12/19 08:13 BP 105/67 08/12/19 08:13 Pulse Ox 100 08/12/19 08:13 Weight - Most Recent: 75.75 kg Lab Results - Last 24 hrs: Laboratory Results - last 24 hr 08/11/19 08/11/19 08/12/19 Range/Units 08:13 08:13 06:05 Hgb 10.1 L (12.0-16.0) g/dL Hct 31.6 L (36.0-46.0) % Blood Type AB POSITIVE Antibody Screen POSITIVE Prewarmed Antibody Srcn NEGATIVE Antibody Identification Anti-Mari Cold Antibody Screen POSITIVE Crossmatch See Detail Med Orders - Current: Current Medications Acetaminophen (Tylenol Extra Strength) 500 mg PO Q4H PRN PRN Reason: Pain Acetaminophen (Tylenol Extra Strength) 1,000 mg PO Q4H PRN PRN Reason: Pain Benzocaine/Menthol (Dermoplast Pain Relief 20%-0.5% [place]) 78 gm TOP ASDIRECTED PRN PRN Reason: Perineal Comfort Measure Last Admin: 08/11/19 12:52 Dose: 1 canister Bisacodyl (Dulcolax) 10 mg RECTAL ONETIME PRN PRN Reason: Constipation Docusate Sodium (Colace) 100 mg PO BID PRN PRN Reason: Constipation Emollient Ointment (Lansinoh Hpa) 0 gm TOP ASDIRECTED PRN PRN Reason: Sore Nipples Ibuprofen (Motrin) 400 mg PO Q4H PRN PRN Reason: Pain Ibuprofen (Motrin) 800 mg PO Q6H PRN PRN Reason: Pain Oxycodone HCl (Oxycodone) 5 mg PO Q2H PRN PRN Reason: Pain Sodium Chloride (Saline Flush) 10 ml FLUSH ASDIRECTED PRN PRN Reason: Keep Vein Open Sodium Chloride (Saline Flush) 2.5 ml FLUSH ASDIRECTED PRN PRN Reason: Keep Vein Open Sodium Chloride (Normal Saline) 10 ml IV ASDIRECTED PRN PRN Reason: IV Use Witch Andressa (Tucks) 1 pad TOP ASDIRECTED PRN PRN Reason: comfort care Last Admin: 08/11/19 12:52 Dose: 1 tub Discontinued Medications Carboprost Tromethamine (Hemabate Ds) 250 mcg IM ASDIRECTED PRN PRN Reason: Post Hemorrhage Fentanyl (Sublimaze) Confirm Administered Dose 100 mcg .ROUTE .STK-MED ONE Stop: 08/11/19 08:36 Lactated Ringer's (Ringers, Lactated) 1,000 mls @ 150 mls/hr IV ASDIRECTED [facility] Last Infusion: 08/11/19 10:10 Dose: 0 mls/hr Oxytocin/Sodium Chloride (Oxytocin 30 Unit/500 Ml-Ns) 30 unit in 500 mls @ 999 mls/hr IV TITRATE [facility] Last Infusion: 08/11/19 10:28 Dose: 500 mls/hr Tranexamic Acid 1,000 mg/ (Sodium Chloride) 110 mls @ 660 mls/hr IV ONETIME PRN PRN Reason: Bleeding Lidocaine HCl (Xylocaine 1%) 50 ml INJECT ONETIME PRN PRN Reason: Laceration repair Methylergonovine Maleate (Methergine) 0.2 mg IM ASDIRECTED PRN PRN Reason: Post Hemorrhage Misoprostol (Cytotec) 200 mcg PO ONETIME PRN PRN Reason: Post Hemorrhage Nalbuphine HCl (Nubain) 10 mg IVPUSH Q1H PRN PRN Reason: Pain (severe 7-10) Ondansetron HCl (Zofran) 4 mg IVPUSH Q6H PRN PRN Reason: Nausea/Vomiting Sterile Water (Sterile Water For Irrigation) 1,000 ml IRR ASDIRECTED PRN PRN Reason: delivery - Exam General: Reports: Alert, Oriented HEENT: Reports: Pupils Equal, Pupils Reactive, EOMI, Mucous Membr. Moist/[place] Neck: Reports: Supple Lungs: Reports: Clear to Auscultation, Normal Respiratory Effort Cardiovascular: Reports: Regular Rate, Regular Rhythm GI/Abdominal Exam: Normal Bowel Sounds, Soft, Non-Tender, No Organomegaly, No Distention, No Abnormal Bruit, No Mass, Pelvis Stable (Female) Exam: Normal External Exam, Normal Speculum Exam, Normal Bimanual Exam Rectal (Female) Exam: Normal Exam, Normal Rectal Tone Back Exam: Reports: Normal Inspection, Full Range of Motion Extremities: Normal Inspection, Normal Range of Motion, Non-Tender, No Pedal Edema, Normal Capillary Refill Skin: Reports: Warm, Dry, Intact Wound/Incisions: Reports: Healing Well Neurological: Reports: No New Focal Deficit Psy/Mental Status: Reports: Alert, Normal Affect, Normal Mood
== END 2019-08-12 13:40 | disposition home or self-care (01) | DRG 807 ==
LOC: MW.OBCHECK 07:46 → MW.OB 07:47 → MW.OBCHECK 07:51 → MW.OB 07:52 → OBSVTOIN 10:08 → MW.OB 15:49
PROVIDERS: ADMIT Obstetrics & Gynecology; ATTEND Obstetrics & Gynecology
PROC: 10E0XZZ Delivery of Products of Conception, External Approach (ICD-10-PCS; principal; 2019-08-11)
PROC: 10907ZC Drainage of Amniotic Fluid, Therapeutic from Products of Conception, Via Natural or Artificial Opening (ICD-10-PCS; 2019-08-11)
DX: O80 Encounter for full-term uncomplicated delivery (principal); Z37.0 Single live birth; Z3A.38 38 weeks gestation of pregnancy
CPT/HCPCS: 36415; 51702; 59025; 59409; 85014; 85018; 85027; 86156; 86850; 86870; 86900; 86901; A9270-GY; J2590; J7120

== ENCOUNTER 2022-03-11 07:49 | Emergency (ER) | payer BC, MEDICAID ==
[2022-03-11] MEDS ORDERED: methylPREDNISolone Sodium Succinate 125 MG/2 ML SDV IVPUSH ONE (08:06)
[2022-03-11] MEDS ORDERED: Famotidine 20 MG/2 ML SDV IVPUSH ONE (08:06)
[2022-03-11] MEDS ORDERED: diphenhydrAMINE 50 MG/ML SDV IVPUSH ONE (08:06)
[2022-03-11 09:13] VITALS: BP 115/75; PULSE 87
== END 2022-03-11 09:13 | disposition home or self-care (01) ==
LOC: MW.ED 07:49
DX: L50.0 Allergic urticaria (principal); Z79.899 Other long term (current) drug therapy
CPT/HCPCS: 96374; 96375; 99283-25; J1200; J2930; J3490

== ENCOUNTER 2022-10-14 10:52 | Emergency (ER) | payer BC, MEDICAID ==
[2022-10-14] MEDS ORDERED: Sodium Chloride 0.9% 10 ML Syringe FLUSH PRN (13:28)
[2022-10-14] MEDS ORDERED: Ketorolac 30 MG/ML SDV IVPUSH ONE (13:28)
[2022-10-14] MEDS ORDERED: Sodium Chloride 0.9% 2.5 ML Syringe FLUSH PRN (13:28)
[2022-10-14] MEDS ORDERED: Sodium Chloride 0.9% 1,000 ML IV ONE (13:28)
[2022-10-14 14:36] LABS: CARBON DIOXIDE,CO2 24.8 mmol/L (21.0-32.0); POTASSIUM,K 3.4 mmol/L (3.5-5.1)
[2022-10-14 15:18] LABS: CORONAVIRUS COVID-19 NAA NEGATIVE (NEGATIVE); INFLUENZA A NAA POSITIVE (NEGATIVE); INFLUENZA B NAA NEGATIVE (NEGATIVE)
[2022-10-14] MEDS ORDERED: diphenhydrAMINE 50 MG/ML SDV IVPUSH ONE (16:13)
[2022-10-14] MEDS ORDERED: Metoclopramide 10 MG/2 ML SDV IVPUSH ONE (16:13)
[2022-10-14] MEDS ORDERED: Benzonatate 100 MG Cap PO ONE (16:14)
[2022-10-14] MEDS ORDERED: Iopamidol 755 MG/ML 500 ML Multipack Bottle IVPUSH ONE (16:48)
[2022-10-14 17:28] VITALS: BP 98/51; PULSE 78
== END 2022-10-14 17:27 | disposition home or self-care (01) ==
LOC: MW.ED 10:52
DX: J10.1 Influenza due to other identified influenza virus with other respiratory manifestations (principal); Z79.899 Other long term (current) drug therapy; Z20.822 Contact with and (suspected) exposure to COVID-19
CPT/HCPCS: 0240U; 36415; 71045; 74177; 80053; 81001; 83735; 85025; 96361; 96374; 96375; 99284; A9270; J1200; J1885; J2765; J3490; J7030; Q9967

== ENCOUNTER 2023-01-18 12:25 | Emergency (ER) | payer BC, MEDICAID ==
[2023-01-18] MEDS: Tetracaine HCl/PF 0.5% 4 ML Bottle EYEBOTH ONE ×2 (13:33→13:54)
[2023-01-18] MEDS ORDERED: Fluorescein 1 MG Ophth Strip EYERT ONE (14:23)
[2023-01-18] MEDS ORDERED: diphenhydrAMINE 50 MG/ML SDV IVPUSH ONE (15:18)
[2023-01-18] MEDS ORDERED: Sodium Chloride 0.9% 10 ML Syringe FLUSH PRN (15:19)
[2023-01-18] MEDS ORDERED: Prochlorperazine 10 MG/2 ML SDV IVPUSH ONE (15:19)
[2023-01-18] MEDS ORDERED: Sodium Chloride 0.9% 2.5 ML Syringe FLUSH PRN (15:19)
[2023-01-18] MEDS ORDERED: Ketorolac 30 MG/ML SDV IVPUSH ONE (15:20)
[2023-01-18 16:51] VITALS: BP 98/56; PULSE 77
== END 2023-01-18 16:51 | disposition home or self-care (01) ==
LOC: MW.ED 12:25
DX: S05.01XA Injury of conjunctiva and corneal abrasion without foreign body, right eye, initial encounter (principal); S09.90XA Unspecified injury of head, initial encounter; Z72.0 Tobacco use; W54.1XXA Struck by dog, initial encounter
CPT/HCPCS: 70450; 70450-26; 96374; 96375; 99284-25; J0780; J1200; J1885; J3490